=== PATIENT | male | born 1975 | race Caucasian/White ===

== ENCOUNTER 2017-12-20 18:55 | Emergency (ER) | payer BC, SELFPAY ==
[2017-12-20] MEDS ORDERED: Sodium Chloride 0.9% 1,000 ML IV STA (19:35)
--- NOTE | 2017-12-20 19:42 | ED PDOC ---
Arrival/HPI - General Historian: Patient - History of Present Illness Narrative History of Present Illness (Text): 12/20/17 19:40 42 yo M w/ PMH HTN and high cholesterol, c/o 2 episodes of rectal pain and bleeding x2 days. Reports bleeding was dark red, but not black, admits to no prior episodes in the past. States that he was straining to have a bowel movement when the rectal bleeding occurred. Reports no abdominal pain, N/V/D, fevers, SOB, CP, dizziness, headache, asa/nsaid use. Denies ever having a colonoscopy. Has no other complaints. PMD Alvaro <Pau Erickson PA-C - Last Filed: 12/20/17 20:58> <Eusebio Elizondo - Last Filed: 12/21/17 07:29> - General Chief Complaint: Male Genitourinary Time Seen by Provider: 12/20/17 19:35 Past Medical History - Infectious Disease Hx of Infectious Diseases: None - Pulmonary Hx Respiratory Disorders: No - Neurological Hx Neurological Disorder: No - HEENT Hx HEENT Disorder: No - Renal Hx Renal Disorder: No - Endocrine/Metabolic Hx Endocrine Disorders: No - Hematological/Oncological Hx Blood Disorders: No - Integumentary Other/Comment: skin grafts bilateral forearms - Musculoskeletal/Rheumatological Hx Musculoskeletal Disorders: No - Gastrointestinal Hx Gastrointestinal Disorders: No - Genitourinary/Gynecological Hx Genitourinary Disorders: No - Psychiatric Hx Depression: No Hx Emotional Abuse: No Hx Physical Abuse: No Hx Substance Use: No - Surgical History Hx Inguinal Hernia Repair: Yes - Anesthesia Hx Anesthesia: Yes Hx Anesthesia Reactions: No Hx Malignant Hyperthermia: No - Suicidal Assessment Feels Threatened In Home Enviroment: No <Pau Erickson PA-C - Last Filed: 12/20/17 20:58> Family/Social History Family/Social History: No Known Family HX Smoking Status: Never Smoked Hx Alcohol Use: Yes (QUIT) Frequency of alcohol use: Socially Hx Substance Use: No <Pau Erickson PA-C - Last Filed: 12/20/17 20:58> Allergies/Home Meds <Pau Erickson PA-C - Last Filed: 12/20/17 20:58> <Eusebio Elizondo - Last Filed: 12/21/17 07:29> Allergies/Adverse Reactions: Allergies No Known Allergies Allergy (Verified 12/20/17 19:29) Review of Systems - Review of Systems Constitutional: absent: Fatigue, Fevers Respiratory: absent: SOB, Cough Cardiovascular: absent: Chest Pain, Palpitations Gastrointestinal: Stool Changes, Hematochezia. absent: Abdominal Pain, Diarrhea, Vomiting Musculoskeletal: absent: Arthralgias, Back Pain, Neck Pain Skin: absent: Rash, Pruritis, Skin Lesions Neurological: absent: Headache, Dizziness, Focal Weakness <Pau Erickson PA-C - Last Filed: 12/20/17 20:58> Physical Exam Vital Signs Pulse Resp BP Pulse Ox 12/20/17 19:30 85 18 136/96 H 96 Temperature: Afebrile Blood Pressure: Normal Pulse: Regular Respiratory Rate: Normal Appearance: Positive for: Well-Appearing, Non-Toxic, Comfortable Pain Distress: None Mental Status: Positive for: Alert and Oriented X 3 - Systems Exam Head: Present: Atraumatic, Normocephalic Pupils: Present: PERRL Extroacular Muscles: Present: EOMI Conjunctiva: Present: Normal Mouth: Present: Moist Mucous Membranes Neck: Present: Normal Range of Motion Respiratory/Chest: Present: Clear to Auscultation, Good Air Exchange. No: Respiratory Distress, Accessory Muscle Use Cardiovascular: Present: Regular Rate and Rhythm, Normal S1, S2. No: Murmurs Abdomen: No: Tenderness, Distention, Peritoneal Signs Rectal: Present: Occult Blood (+guiac), Rectal Tenderness, Gross Blood (+dark red blood noted on digital rectal exam), Normal Rectal Tone, Other (Male RN was present during the entire exam). No: Hemorrhoids, Fissures Back: Present: Normal Inspection Upper Extremity: Present: Normal Inspection. No: Cyanosis, Edema Lower Extremity: Present: Normal Inspection. No: Edema Neurological: Present: GCS=15, CN II-XII Intact, Speech Normal Skin: Present: Warm, Dry, Normal Color. No: Rashes Psychiatric: Present: Alert, Oriented x 3, Normal Insight, Normal Concentration <Pau Erickson PA-C - Last Filed: 12/20/17 20:58> Vital Signs Pulse Resp BP Pulse Ox 12/20/17 20:47 76 18 127/89 100 12/20/17 19:30 85 18 136/96 H 96 <Eusebio Elizondo - Last Filed: 12/21/17 07:29> Medical Decision Making ED Course and Treatment: 12/20/17 19:38 Plan : - Labs - IV - NS bolus IV Labs reviewed : hgb 14, k 3.5 Patient given KCl 20 mEq PO. On reevaluation, patient reports no abdominal pain, N/V or rectal bleeding at this time. Patient remains awake alert and oriented 3 in no acute distress, he is smiling, in good spirits. Abdomen soft and nontender, repeat neuro exam shows no focal findings. Lab results d/w the patient. Dx of possible internal hemorrhoids d/w the patient. Advised to follow up with primary care physician and GI referral in 1-2 days without fail. Advised to take medication as prescribed. Return to the emergency room at any time for any new or worsening symptoms. Patient states he fully agrees with and understands discharge instructions. States that he agrees with the plan and disposition. Verbalized and repeated discharge instructions and plan. I have given the patient opportunity to ask any additional questions. - Medication Orders Current Medication Orders: Sodium Chloride (Sodium Chloride 0.9%) 1,000 mls @ 1,000 mls/hr IV .Q1H STA Stop: 12/20/17 20:34 <Pau Erickson PA-C - Last Filed: 12/20/17 20:58> - Lab Interpretations Lab Results: 12/20/17 19:40 12/20/17 19:40 Lab Results 12/20/17 19:40: Sodium 141, Potassium 3.5 L, Chloride 103, Carbon Dioxide 28, Anion Gap 13, BUN 16, Creatinine 1.0, Est GFR ( Amer) > 60, Est GFR (Non- Af Amer) > 60, Random Glucose 104, Calcium 9.6, Magnesium 2.0, Total Bilirubin 1.4 H, AST 37, ALT 48, Alkaline Phosphatase 70, Total Protein 7.9, Albumin 4.4, Globulin 3.6, Albumin/Globulin Ratio 1.2, Lipase 53 12/20/17 19:40: PT 11.7, INR 1.03, APTT 30.2 12/20/17 19:40: WBC 8.2, RBC 4.76, Hgb 14.8, Hct 41.9 L, MCV 88.0, MCH 31.1, MCHC 35.3, RDW 12.6, Plt Count 336, MPV 9.5, Gran % 51.0, Lymph % (Auto) 37.2 H, Hand % (Auto) 5.5, Eos % (Auto) 5.9 H, Baso % (Auto) 0.4, Gran # 4.17, Lymph # (Auto) 3.0, Hand # (Auto) 0.5, Eos # (Auto) 0.5, Baso # (Auto) 0.03 - Medication Orders Current Medication Orders: Discontinued Medications Sodium Chloride (Sodium Chloride 0.9%) 1,000 mls @ 1,000 mls/hr IV .Q1H STA Stop: 12/20/17 20:34 Last Admin: 12/20/17 19:47 Dose: 1,000 mls/hr eMAR Start Stop Document 12/20/17 19:47 RD (Rec: 12/20/17 19:47 RD [id number]) Intravenous Solution Start Date 12/20/17 Start Time 19:47 End Date 12/20/17 End time 20:47 Total Infusion Time 60 Potassium Chloride (Potassium Chloride Oral Soln) 20 meq PO STAT STA Stop: 12/20/17 20:12 Last Admin: 12/20/17 20:45 Dose: 20 meq <Eusebio Elizondo - Last Filed: 12/21/17 07:29> - PA / JANITOR HELPER / Resident Statement BERENICE has reviewed & agrees with the documentation as recorded. <Pau Erickson PA-C - Last Filed: 12/20/17 20:58> - PA / JANITOR HELPER / Resident Statement BERENICE has reviewed & agrees with the documentation as recorded. <Eusebio Elizondo - Last Filed: 12/21/17 07:29> Disposition/Present on Arrival - Present on Arrival Any Indicators Present on Arrival: No History of DVT/PE: No History of Uncontrolled Diabetes: No Urinary Catheter: No History of Decub. Ulcer: No History Surgical Site Infection Following: None - Disposition Have Diagnosis and Disposition been Completed?: Yes Disposition Time: 20:15 Patient Plan: Discharge <Pau Erickson PA-C - Last Filed: 12/20/17 20:58> <Eusebio Elizondo Last Filed: 12/21/17 07:29> - Disposition Diagnosis: Rectal pain, Rectal bleeding Disposition: HOME/ ROUTINE Condition: STABLE Discharge Instructions (ExitCare): Hemorrhoids, Bloody Stools, Adult (DC) Additional Instructions: Thank you for letting us take care of you today. You were treated for rectal pain, rectal bleeding, consider internal hemorrhoids. The emergency medical care you received today was directed at your acute symptoms. If you were prescribed any medication, please fill it and take as directed. It may take several days for your symptoms to resolve. Return to the Emergency Department if your symptoms worsen, do not improve, or if you have any other problems. Please contact your doctor in 2 days for re-evaluation and follow up / or call one of the physicians/clinics you have been referred to that are listed on the Patient Visit Information form that is included in your discharge packet. Bring any paperwork you were given at discharge with you along with any medications you are taking to your follow up visit. Our treatment cannot replace ongoing medical care by a primary care provider (PCP) outside of the emergency department. Thank you for allowing the [facility] team to be part of your care today. Prescriptions: Docusate Sodium [Colace] 100 mg PO BID PRN #30 capsule PRN Reason: Constipation Hard Fat/Phenylephrine Arma [Anusol Suppository] 1 sup RC BID #28 sup Referrals: Perry Sinha MD [Primary Care Provider] - Follow up with primary Randolph Crowder DO [Staff Provider] - Follow up with primary Yazmin Cote MD [Staff Provider] - Follow up with primary Forms: [employer] (Cuban), WORK NOTE
[2017-12-20 19:49] VITALS: RESP 18; BMI 30.7
[2017-12-20 19:53] LABS: BASO # 0.03 K/mm3 (0.0-2.0); BASO % 0.4 % (0.0-3.0); EOS # 0.5 (0.0-0.7); EOS % 5.9 % (1.5-5.0); GRAN # 4.17 (1.4-6.5); HEMOGLOBIN 14.8 g/dL (14.0-18.0); LYMPH % 37.2 % (22.0-35.0); MEAN CORPUSCULAR HEMOGLOBIN 31.1 pg (25.0-35.0); MEAN CORPUSCULAR HGB CONC 35.3 g/dl (31.0-37.0); MEAN PLATELET VOLUME 9.5 fl (7.0-11.0); MONO # 0.5 (0.1-0.6); MONO % 5.5 % (1.0-6.0); RBC 4.76 10^6/uL (3.5-6.1); RED CELL DISTRIBUTION WIDTH 12.6 % (11.5-14.5); WHITE BLOOD COUNT 8.2 10^3/uL (4.5-11.0)
[2017-12-20 20:01] LABS: INR 1.03; PARTIAL THROMBOPLASTIN TIME 30.2 Seconds (25.1-36.5); PROTHROMBIN TIME 11.7 SECONDS (9.4-12.5)
[2017-12-20 20:05] LABS: ALB/GLOB RATIO 1.2 (1.1-1.8); ALBUMIN 4.4 g/dL (3.0-4.8); ALT/SGPT 48 U/L (7-56); AST/SGOT 37 U/L (17-59); BLOOD UREA NITROGEN 16 mg/dL (7-21); CALCIUM 9.6 mg/dL (8.4-10.5); GFR NON-AFRICAN AMERICAN > 60; LIPASE 53 U/L (23-300)
[2017-12-20] MEDS ORDERED: Potassium Chloride 20 mEq/15 ml LIQ UD PO STA (20:11)
[2017-12-20 20:48] VITALS: BP 127/89; PULSE 76; O2SAT 100
== END 2017-12-20 20:47 | disposition home or self-care (01) ==
LOC: ED 18:55
DX: K62.5 Hemorrhage of anus and rectum (principal); I10 Essential (primary) hypertension; E78.00 Pure hypercholesterolemia, unspecified
CPT/HCPCS: 80053; 83690; 83735; 85025; 85610; 85730; 96360; 99284; J7030